=== PATIENT | female | born 1965 | race African-American/Black ===

== ENCOUNTER 2017-09-01 08:49 | Outpatient (CLI) | payer BC, OTHER ==
--- NOTE | 2017-09-01 10:03 | ULT ---
SONOGRAM ABDOMEN COMPLETE: Date: 09/01/17 HISTORY: Upper abdomen pain. FINDINGS: Gallbladder has a normal appearance without evidence of stones. Common duct is 0.5 cm. Liver unremark able without focal mass or intrahepatic biliary dilatation. Echogenic foci at the inferior pole left kidney have the appearance of nonshadowing stones. Small right renal cyst also apparent. Spleen, left kidney, and visualized portions of the abdominal aorta, IVC, and pancreas have a normal appearance. IMPRESSION: 1. No evidence of gallstones or biliary obstruction. 2. Probable small, nonobstructing right renal calculus. POS: H
== END 2017-09-01 08:50 | disposition home or self-care (01) ==
LOC: ULT 08:49
PROVIDERS: ATTEND Internal Medicine Gastroenterology
DX: N20.0 Calculus of kidney (principal)
CPT/HCPCS: 76700

== ENCOUNTER 2018-12-26 08:25 | Outpatient (CLI) | payer OTHER ==
--- NOTE | 2018-12-26 10:19 | RAD ---
2 VIEWS CHEST: Date: 12/26/18 PROVIDED CLINICAL HISTORY: Chest pain. FINDINGS: No comparisons. Cardiac and mediastinal silhouette within normal limits. Lungs appear clear. No pleural fluid or pneu mothorax apparent. IMPRESSION: No evidence for an acute cardiopulmonary process. POS: [facility]
--- NOTE | 2018-12-26 10:20 | RAD ---
THORACIC SPINE RADIOGRAPHS 3 VIEWS: Date: 12/26/18 PROVIDED CLINICAL HISTORY: Back pain. FINDINGS: Thoracic alignment appears normal. Vertebral body heights appear preserved. Mild thoracic disc degene rative changes are seen. Pedicles appear intact. No radiographically apparent lytic or blastic lesion s. IMPRESSION: Mild thoracic disc degenerative change. POS: [facility]
== END 2018-12-26 08:26 | disposition home or self-care (01) ==
LOC: SCSRAD 08:25
PROVIDERS: ATTEND Internal Medicine
DX: M89.8X1 Other specified disorders of bone, shoulder (principal); M51.34 Other intervertebral disc degeneration, thoracic region
CPT/HCPCS: 71046; 72072